=== PATIENT | male | born 1980 | race Caucasian/White ===

== ENCOUNTER 2017-09-08 20:26 | Emergency (ER) | payer SELFPAY ==
[2017-09-08 20:47] VITALS: O2SAT 97
[2017-09-08] MEDS ORDERED: BABY ASPIRIN 81 MG CHEW PO ONE (21:27)
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
[2017-09-08 21:28] VITALS: BP 119/79; PULSE 81
[2017-09-08] MEDS ORDERED: TORAdol 30 mg Injection IV ONE (21:28)
[2017-09-08] MEDS ORDERED: TORAdol 30 mg Injection ONE (21:32)
[2017-09-08] MEDS ORDERED: BABY ASPIRIN 81 MG CHEW ONE (21:33)
[2017-09-08 21:38] LABS: Granulocyte Absolute (ANC) 16.81 (1.4-6.9); Hematocrit 49.6 % (42-50); Hemoglobin 17.3 gm/dl (12.5-18.0); Mean Cell Volume 87.8 fl (78-100); Mean Corpuscular Hemoglobin 30.6 pg (26-32); Mean Corpuscular Hgb Concent. 34.9 g/dl (32-36); Mean Platelet Volume 11.2 fl (6-9.5); Platelet Count 274 K/mm3 (150-450); Red Blood Count 5.65 M/mm3 (4.1-5.6); Red Cell Distribution Width 12.8 % (11.5-14.0); White Blood Count 21.5 K/mm3 (4.0-10.5)
[2017-09-08 21:57] LABS: ALBUMIN 4.6 g/dL (3.5-5.0); ALKALINE PHOSPHATASE 82 U/L (38-126); BLOOD UREA NITROGEN 13 mg/dL (9-20); CHLORIDE 108 mmol/L (98-107); Calcium 9.7 mg/dL (8.4-10.2); Carbon Dioxide 26 mmol/L (22-30); Creatinine 1 0.74 mg/dL (0.66-1.25); Glucose 83 mg/dL (74-106); Potassium 3.7 mmol/L (3.5-5.1); SGOT/AST 35 U/L (17-59); SGPT/ALT 53 U/L (0-50); SODIUM 145 mmol/L (137-145); Total Protein 8.1 g/dL (6.3-8.2)
[2017-09-08 22:06] LABS: NT PRO BNP 19.7 pg/mL (0-450)
[2017-09-08] MEDS ORDERED: MORPHINE SULFATE 4 MG INJ IV ONE (22:39)
[2017-09-08] MEDS ORDERED: Zofran 4 MG/2 ML VIAL IV ONE (22:40)
[2017-09-08] MEDS ORDERED: Zofran 4 MG/2 ML VIAL ONE (22:42)
[2017-09-08] MEDS ORDERED: MORPHINE SULFATE 4 MG INJ ONE (22:42)
[2017-09-08 23:33] LABS: BAND 2 % (0.0-2.0); Eosinophil 4 % (0.00-3.0); Lymphocytes 14 % (24-44); Monocyte 7 % (0.0-12.0); Neutrophils 73 % (36.-66.); Platelet Estimate NORMAL (NORMAL); Total Cells Counted 100
[2017-09-09] MEDS ORDERED: NORCO 5/325 MG PO ONE (00:05)
[2017-09-09] MEDS ORDERED: NORCO 5/325 MG ONE (00:11)
--- NOTE | 2017-09-09 08:57 | XRAY ---
Indication: Chest pain, cough, and congestion. Comparison: December 01, 2016. PA/lateral chest again demonstrates normal heart, lungs, and bony thorax with a few incidental calcified granulomas.
--- NOTE | 2017-09-09 09:00 | XRAY ---
Indication: Right-sided chest pain. Cough and congestion. Elevated WBC. No known injury. Multiple contiguous axial images obtained through the chest using 80 cc Isovue 370 contrast. Comparison: None Lungs are inflated with minimal bilateral dependent atelectasis, minimal biapical subpleural cystic changes, and a few tiny calcified granulomas. No suspicious pulmonary mass, infiltrate, consolidation, or effusion. Heart is not enlarged. Aorta is normal in course and caliber. Small mediastinal and bilateral hilar calcified nodes. No pathologic mediastinal/hilar lymphadenopathy. Bony thorax intact. Limited upper abdomen is unremarkable. Impression: 1. Minimal biapical subpleural cystic changes and evidence for old granulomatous disease. 2. Remaining CT chest with contrast exam is negative. Comment: Preliminary interpretation was made by [facility]. No discrepancy. CTDI 17.50
== END 2017-09-09 00:20 | disposition home or self-care (01) ==
LOC: ED 20:26
DX: R07.89 Other chest pain (principal); R05 Cough
CPT/HCPCS: 36000; 36415; 71046; 71260; 80053; 83880; 84484; 85025; 85379; 93041; 96374; 96375; 99284; J1885; J2270; J2405; A9270-GY

== ENCOUNTER 2018-06-02 13:48 | Emergency (ER) | payer OTHER ==
[2018-06-02] MEDS ORDERED: TORAdol 30 mg Injection IM ONE (15:17)
[2018-06-02] MEDS ORDERED: Norflex 60 MG/2 ML IM ONE (15:17)
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
[2018-06-02] MEDS ORDERED: TORAdol 30 mg Injection ONE (15:29)
[2018-06-02] MEDS ORDERED: Norflex 60 MG/2 ML ONE (15:30)
--- NOTE | 2018-06-02 16:02 | XRAY ---
Exam: Two-view chest from 06/02/2018. Comparison: Two-view chest from 09/08/[address] of the chest with IV contrast from 09/08/2017. Indication: Chest wall pain, possible pulled muscle. Findings: Upright PA and lateral chest film are submitted for evaluation. The heart size appears normal. The christian and mediastinal structures appear intact. Lung expansion is slightly decreased as compared to 09/08/2017. I believe there is some minimal bibasilar linear atelectasis or scarring near the hemidiaphragmatic surfaces. A tiny calcified granuloma is seen within the peripheral right midlung field. There are some probable small bilateral perihilar calcified granulomas as well. The remainder of the lung cote appears clear. Minimal right apical pleural thickening is seen. No air space infiltrate, vascular congestion, pneumothorax, or pleural fluid is seen. No acute osseous process is seen. Impression: 1. Inspiratory effort is mildly decreased as compared to 09/08/2017. I believe there is some minimal transverse linear scarring or subsegmental atelectasis at both lung bases adjacent to the hemidiaphragmatic surfaces. 2. No air space infiltrates or other acute cardiopulmonary disease is seen. Note: Incidentally, most of the thyroid gland is seen on the prior CT of the chest from 09/08/2017. I believe the thyroid gland is diffusely enlarged. Correlate clinically.
[2018-06-02 16:26] VITALS: BP 112/73; PULSE 88
[2018-06-02 16:38] VITALS: O2SAT 95
== END 2018-06-02 16:45 | disposition home or self-care (01) ==
LOC: ED 13:48
DX: E04.9 Nontoxic goiter, unspecified (principal)
CPT/HCPCS: 71046; 93005; 96372; 99284; J1885; J2360